=== PATIENT | female | born 1980 | race African-American/Black ===

== ENCOUNTER → 2019-11-15 | Emergency (ER) | payer MEDICAID, OTHER ==
[~2019-11-15] VITALS: Ht 170.2 cm; Wt 97.5 kg
[~2019-11-15] MED LIST: CLINDAMYCIN 900MG IV 50 ML IV ONE; cefTRIAXone 1GM/50ML D5W 50 ML IV ONE
[2019-11-15 20:54] VITALS: BP 112/74
== END | disposition left against medical advice (07) ==
LOC: ER 18:33
DX: K04.7 Periapical abscess without sinus (principal)
CPT/HCPCS: 70486

== ENCOUNTER 2019-11-16 21:12 | Emergency (ER) | payer MEDICAID, OTHER ==
[~2019-11-16] VITALS: Ht 170.2 cm; Wt 95.7 kg
[2019-11-17] MEDS ORDERED: PIPERACILLIN-TAZOB 3.375GM 100 ML IV ONE ×2 (02:05→02:07)
[2019-11-17] MEDS ORDERED: DOXYCYCLINE 100MG/250ML 250 ML IV ONE ×2 (02:07→05:15)
[2019-11-17 06:14] LABS: Basophils # (auto) 0.1 10 ^3/uL (0-0.2); Basophils % (auto) 0.8 % (0.0-2.0); Eosinophils # (auto) 0.3 10 ^3/uL (0-0.8); Eosinophils % (auto) 3.7 % (0.0-7.0); Hematocrit 38.6 % (36.0-46.0); Hemoglobin 12.8 g/dL (12.2-16.2); Lymphocytes # (auto) 1.9 10 ^3/uL (0.4-5.4); Lymphocytes % (auto) 25.8 % (10.0-50.0); Mean Corpuscular Hemoglobin 29.2 pg (28.0-32.0); Mean Corpuscular Hgb Conc. 33.1 g/dL (32.0-36.0); Mean Corpuscular Volume 88.1 fL (80.0-100.0); Monocytes # (auto) 0.7 10 ^3/uL (0-1.3); Monocytes % (auto) 9.3 % (0.0-12.0); Neutrophils # (auto) 4.5 10 ^3/uL (1.6-8.6); Neutrophils % (auto) 60.4 % (37.0-80.0); Nucleated Red Blood Cells % 0.1 %; Platelet Count (auto) 230 10^3/uL (140-450); Red Blood Cells 4.39 10^6/uL (4.0-5.20); Red Cell Distribution Width 14.2 % (11.8-14.3); White Blood Cell 7.5 10^3/uL (4.4-10.8)
[2019-11-17 06:50] LABS: Albumin 3.2 g/dL (3.4-5.0); BUN/Creatinine Ratio 8.8; Calcium 9.1 mg/dL (8.5-10.1); Potassium 3.8 mmol/L (3.5-5.1)
[2019-11-17 06:52] LABS: Bilirubin, Total 0.3 mg/dL (0.2-1.0); Total Protein 7.2 g/dL (6.4-8.2)
[2019-11-17 07:30] VITALS: BP 110/79
== END 2019-11-17 09:19 | disposition other institution (70) ==
LOC: ER 21:17
DX: L03.211 Cellulitis of face (principal); Z88.8 Allergy status to other drugs, medicaments and biological substances
CPT/HCPCS: 36415; 80053; 84702; 85025; 96365; 96366; 96367; 99285; J2543; J3490